=== PATIENT | female | born 1955 | race Caucasian/White ===

== ENCOUNTER 2019-04-24 10:20 | Emergency (ER) | payer MEDICARE, MEDICAID, SELFPAY ==
--- NOTE | ~2019-04-24 | XR_ITS ---
EXAMINATION: XR chest 2V 04/24/2019 11:29 INDICATION: Shortness of breath, cough and fever PROCEDURE: 2 view chest COMPARISON: Comparison to multiple prior studies sequentially, with oldest reviewed study dated 05/2013. FINDINGS: The lungs are clear. The cardiomediastinal silhouette is within normal limits. There are no pleural effusions. There is no pneumothorax suspected. IMPRESSION: 1: NO ACUTE CARDIOPULMONARY DISEASE. Reviewed, dictated and finalized at location A. [employer]
[2019-04-24 10:45] VITALS: BP 148/72; PULSE 81; RESP 20; TEMP 37.2; O2SAT 93
[2019-04-24] MEDS: IPRATROPIUM 0.5 MG/ALBUTEROL SULFATE 2.5 MG AMPUL.NEB 3 ML INHALATION (11:03)
[2019-04-24 11:05] VITALS: PULSE 75; RESP 16
--- NOTE | 2019-04-24 11:10 | ED.GENADULT ---
HPI - General Adult General Chief complaint: Upper Respiratory Infection Stated complaint: possible flu Time Seen by Provider: 04/24/19 10:30 Source: patient Mode of arrival: ambulatory Limitations: no limitations History of Present Illness HPI narrative: 53-year-old with a history of COPD comes in today complaining of fever, chills, fatigue, headache, body aches, cough and congestion that started in the last day or 2. She states that she feels short of breath, wheezy, and the symptoms were not improved with her morning neb treatment. She denies sick exposures. She states that she recently had the influenza and pneumonia vaccines. Onset (ago): day(s) (1-2) Severity: moderate Relieving factors: none Exacerbating factors: none Associated symptoms: cough, fever/chills, headaches, malaise and shortness of breath Treatments prior to arrival: other (albuterol at 0900 today) Related Data Home Medications Medication Instructions Recorded Confirmed alendronate 70 mg PO DAILY 04/24/19 04/24/19 amlodipine 10 mg PO DAILY 04/24/19 04/24/19 atorvastatin 20 mg PO DAILY 04/24/19 04/24/19 carvedilol 12.5 mg PO DAILY 04/24/19 04/24/19 ergocalciferol (vitamin D2) 1,250 mcg PO DAILY 04/24/19 04/24/19 linaclotide [Linzess] 72 mcg PO DAILY 04/24/19 04/24/19 Allergies Allergy/AdvReac Type Severity Reaction Status Date / Time Bleach (Sodium Hypochlorite) Allergy Intermediate Verified 06/11/12 10:36 ibuprofen Allergy Intermediate Verified 06/11/12 11:01 lisinopril Allergy Intermediate Verified 06/11/12 10:36 rosuvastatin [Crestor] Allergy Intermediate nausea Verified 04/15/13 14:10 No Known Allergies Allergy Unverified 10/19/18 11:15 Review of Systems Constitutional: Constitutional: Reports as per HPI, Reports chills, Reports fatigue and Reports fever(s) Eyes: Eyes: Denies change in vision and Denies photophobia ENT: Denies dysphagia, Reports nasal congestion and Denies sore throat Cardiovascular: Cardiovascular: Denies chest pain and Denies radiating jaw, neck or arm pain Respiratory: Respiratory: Reports as per HPI, Reports cough, Reports dyspnea and Reports wheezing Gastrointestinal: Gastrointestinal: Denies abdominal pain, Denies diarrhea, Denies nausea and Denies vomiting Genitourinary: Genitourinary: Denies nocturia and Denies dysuria Musculoskeletal: Musculoskeletal: Denies back pain and Denies joint swelling Integumentary/Breasts: Skin/Breast: Denies pruritus, Denies erythema and Denies rash Neurologic: Denies vertigo, Denies syncope, Reports headache(s) and Denies focal weakness Psychiatric: Psychiatric: Denies anxiety and Denies depression Endocrine: Endocrine: Denies polydipsia and Denies polyuria Hematologic/Lymphatic: Hematologic/Lymphatic: Denies easy bleeding and Denies easy bruising Allergic/Immunologic: Allergic/Immunologic: Denies lip swelling and Reports wheezing FOR[facility]LY [facility] Past Medical History Medical History (Updated 04/24/19 @ 12:07 by Gualberto Borja MD) COPD (chronic obstructive pulmonary disease) HTN (hypertension) Hypertriglyceridemia Obesity Surgical History Surgical History History of carpal tunnel surgery History of dilatation and curettage Family History Family History (Updated 03/13/14 @ 00:00 by CONVUSER A) Father Family history of type 2 diabetes mellitus Hypertension Mother Family history of coronary artery disease Family history of type 2 diabetes mellitus Sister Family history of type 2 diabetes mellitus Brother Family history of type 2 diabetes mellitus Social History Social History (Updated 04/24/19 @ 11:16 by Gualberto Borja MD) Smoking status: Former smoker Alcohol intake: never Substance use: never Living arrangements: alone Exam Const: General: no acute distress Nutritional Appearance: obese Orientation/consciousness: patient oriented x3 Limitations: no limitations HENMT: Ears:
[2019-04-24 11:12] LABS: Influenza Control Valid (Valid)
[2019-04-24 11:16] VITALS: PULSE 72; RESP 16
--- NOTE | 2019-04-24 11:40 | PC.NURSE ---
2L O2 APPLIED SPO2 DROPPED TO 89%
[2019-04-24 12:15] LABS: Add Urine Microscopic? YES; Appearance Urine Clear (Clear); Bilirubin Urine Negative (Negative); Blood Urine 1+ (Negative); Color Urine Yellow (Yellow); Glucose Urine UA Negative (Negative); Ketones Urine Negative (Negative); Leukocyte Esterase Ur Negative (Negative); Nitrate Urine Negative (Negative); Protein Urine Negative (Negative); Specific Grav Ur <= 1.005 (1.010-1.020); Urobilinogen Urine 0.2 mg/dL (0.2-1.0)
--- NOTE | 2019-04-24 12:17 | PC.NURSE ---
SPO2 92% ON ROOM AIR
[2019-04-24 12:19] LABS: Bacteria Urine None seen /hpf; RBC Urine 0-2 /hpf (0-2); Squamous Epithelial Cell Urine Moderate /hpf (Few); WBC Urine 0-3 /hpf (0-3)
[2019-04-24 12:27] VITALS: BP 137/65; O2SAT 92
== END 2019-04-24 12:31 | disposition home or self-care (01) ==
PROVIDERS: Emergency Provider Emergency Medicine; PCP Internal Medicine
DX: J20.9 Acute bronchitis, unspecified (principal)
CPT/HCPCS: 71046; 81001; 87804; 94640; 99283

== ENCOUNTER 2019-06-11 06:55 | Outpatient (CLI) | payer MEDICARE, MEDICAID, SELFPAY ==
[2019-06-11 07:35] LABS: Estimated Glomerular Filt Rate > 60
== END 2019-06-11 06:56 | disposition home or self-care (01) ==
LOC: CHSIMG 06:58
PROVIDERS: PCP Internal Medicine; Visit Provider Internal Medicine
DX: R42 Dizziness and giddiness (principal); Z53.8 Procedure and treatment not carried out for other reasons
CPT/HCPCS: 99199

== ENCOUNTER 2019-11-24 12:03 | Outpatient (CLI) | payer MEDICARE, MEDICAID, SELFPAY ==
--- NOTE | ~2019-11-24 | CT_ITS ---
EXAMINATION: CT lung screening EXAM DATE: 11/24/2019 12:41 INDICATION: Personal history of nicotine dependence. TECHNIQUE: Spiral low dose CT of the chest without contrast. Axial, coronal and sagittal images were reviewed. The dose-length product (DLP) for this examination was 503.19 mGy-cm. The exposure was t ailored according to patient size (auto mA exposure control), and iterative reconstruction (ASIR) was used as additional dose reduction technique. Comparison is made to prior examination from 09/20/18. FINDINGS: Several punctate calcified granulomas. There is mild emphysema. No suspicious pulmonary no dules. Tracheobronchial tree is patent. There is no mediastinal, hilar or axillary lymphadenopathy . There are no pleural or pericardial effusions. There is no pneumothorax. Heart normal in size . There is moderate coronary arterial calcification, arterial sclerosis. Completely imaged right ad renal gland hyperplasia or adenoma. Patient has diffuse idiopathic skeletal hyperostosis (DISH). IMPRESSION: Lung-RADS category 1, negative (<1%chance of malignancy); recommend continued LDCT screen ing in 1 year. Reviewed, dictated and finalized at location B. IMPRESSION: Lung-RADS category 1, negative (<1%chance of malignancy); recommend continued LDCT screening in 1 year.
--- NOTE | ~2019-11-24 | MM_ITS ---
EXAMINATION: MM screening natty BI w ronnie HISTORY: Screening mammogram TECHNIQUE: Craniocaudal and mediolateral oblique 3-D tomosynthesis images were obtained and synthetic 2-D images were generated. CAD analysis was submitted and interpreted. COMPARISON: 01/05/2017 bilateral digital screening mammogram BREAST PARENCHYMAL COMPOSITION: There are scattered areas of fibroglandular density. FINDINGS: Multiple bilateral benign calcifications are noted.. There is no evidence of suspicious mas s, calcification, or architectural distortion to suggest malignancy in either breast. There has been no suspicious interval change. IMPRESSION: 1. No mammographic evidence of malignancy. 2. Recommend routine screening mammography in one year. BI-RADS Category 2: Benign finding(s). Reviewed, dictated and finalized at location A.
== END 2019-11-24 12:04 | disposition home or self-care (01) ==
LOC: CHSIMG 12:06
PROVIDERS: PCP Internal Medicine; Visit Provider Internal Medicine
DX: Z12.2 Encounter for screening for malignant neoplasm of respiratory organs (principal); Z87.891 Personal history of nicotine dependence; Z12.31 Encounter for screening mammogram for malignant neoplasm of breast
CPT/HCPCS: 77063; 77067; G0297

== ENCOUNTER 2020-04-05 10:25 | Outpatient (CLI) | payer MEDICARE, MEDICAID, SELFPAY ==
--- NOTE | ~2020-04-05 | XR_ITS ---
EXAMINATION: XR hip RT min 2V DATE: 04/05/2020 10:53 INDICATION: Right hip pain. TECHNIQUE: 2 views of right hip were obtained. COMPARISON: None. FINDINGS: Bone alignment is normal. No fracture. Right hip joint space is normal. IMPRESSION: 1. Normal right hip. Reviewed, dictated and finalized at location A. OGICS SPECIALIST IMPRESSION: 1. Normal right hip.
== END 2020-04-05 10:26 | disposition home or self-care (01) ==
LOC: CHSIMG 10:27
PROVIDERS: PCP Nurse Practitioner Family; Visit Provider Nurse Practitioner Family
DX: M25.551 Pain in right hip (principal)
CPT/HCPCS: 73502

== ENCOUNTER 2020-08-29 07:27 | Outpatient (CLI) | payer MEDICARE, MEDICAID, SELFPAY ==
--- NOTE | ~2020-08-29 | MR_ITS ---
EXAMINATION: MR brain/brain stem wo/w con DATE: 08/29/2020 12:13 INDICATION: Dementia. TECHNIQUE: Magnetic resonance imaging (MRI) of the brain and brainstem was performed without and with 10 mL MultiHance intravenous contrast. Sequences included sagittal and axial T1-weighted FSE, axial diffusion-weighted FS EPI, axial T2*-weighted GRE, axial T2-weighted FLAIR Propeller, and axial T2-we ighted Propeller. Postcontrast sequences included axial and coronal T1-weighted FSE. Apparent diffusi on coefficient (ADC) maps were created. COMPARISON: None. FINDINGS: There are old infarcts in left cerebellum. There are scattered areas of nonspecific increas ed T2-weighted signal intensity in the cerebral white matter. There is cystic encephalomalacia in the right frontal lobe periventricular white matter. There is no intracranial hemorrhage, acute infarcti on, or abnormal intracranial mass lesion. The ventricles are normal in size. The orbits are normal. T here are mucous retention cyst in right maxillary sinus. The mastoid air cells are normal. IMPRESSION: 1. 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 2. Moderate nonspecific cerebral white matter disease, which likely represents chronic small vessel i schemic disease. Reviewed, dictated and finalized at location A. IMPRESSION: 1. 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 2. Moderate nonspecific cerebral white matter disease, which likely represents chronic small vessel ischemic disease.
== END 2020-08-29 07:28 | disposition home or self-care (01) ==
LOC: CHSIMG 07:30
PROVIDERS: PCP Internal Medicine; Visit Provider Internal Medicine
DX: F03.90 Unspecified dementia, unspecified severity, without behavioral disturbance, psychotic disturbance, mood disturbance, and anxiety (principal)
CPT/HCPCS: 70553; A9577

== ENCOUNTER 2020-10-11 09:59 | Outpatient (CLI) | payer MEDICARE, MEDICAID, SELFPAY ==
--- NOTE | ~2020-10-11 | US_ITS ---
EXAMINATION: US carotid duplex BI DATE: 10/11/2020 11:42 INDICATION: Right frontal lobe infarct. Cerebral vascular accident. TECHNIQUE: Grayscale, color Doppler, and pulsed Doppler images of the cervical carotid arteries were obtained. The degree of vessel stenosis is placed in one of the following categories: normal, <50%, 5 0-69%, >=70% but less than near-occlusion, near-occlusion, or total occlusion. Note that percent sten osis relative to normal distal artery lumen diameter is indirectly measured from velocity measurement s as described by Nate, et al. Radiology 2003; 229:340-346. COMPARISON: None. FINDINGS: RIGHT: The right common carotid artery (CCA) peak systolic velocity (PSV) is 72 cm/s. The right internal car otid artery (ICA) PSV is 126 cm/s. The right ICA end-diastolic velocity (EDV) is 26 cm/s. The right I CA/CCA PSV ratio is 1.7. Grayscale and color Doppler images yield an estimate of <50% diameter reduct ion from plaque in the ICA. There is antegrade flow in the right vertebral artery. LEFT: The left CCA PSV is 90 cm/s. The left ICA PSV is 100 cm/s. The left ICA EDV is 23 cm/s. The left ICA/ CCA PSV ratio is 1.1. Grayscale and color Doppler images yield an estimate of <50% diameter reduction from plaque in the ICA. There is antegrade flow in the left vertebral artery. IMPRESSION: 1. <50% stenosis in the right internal carotid artery. 2. <50% stenosis in the left internal carotid artery. Reviewed, dictated and finalized at location A.
--- NOTE | 2020-10-11 11:43 | ECHO_ITS ---
Patient Info Name: Clau Carlson Age: 65 years : 1955 Gender: Female Ht: 66 in Wt: 297 lbs BSA: 2.58 m2 HR: 68 bpm BP: 155 / 81 mmHg Technical Quality: Fair Exam Date: 10/11/2020 10:54 AM Exam Location: [facility] Patient Status: Outpatient Admit Date: 10/11/2020 Staff Ordering Physician: Tex Coffey MD Health And Safety Trainer: Layton Landrum RDCS, RT Attending Provider: Tex Coffey MD Referring Physician: Alexx PHILLIPS; Exam Type: CA echo doppler color flow Study Info Indications I63.239 - Cerebral infarction due to unspecified occlusion or stenosis of unspecified carotid arteries Complete two-dimensional, color flow and Doppler transthoracic echocardiogram is performed. Summary 1. Complete two-dimensional, color flow and Doppler transthoracic echocardiogram is performed. 2. Left ventricular chamber dimension is normal. 3. Left ventricular systolic function is normal, estimated at 55-60%. 4. There is moderately increased left ventricular wall thickness. 5. The left ventricular diastolic function is grade I diastolic dysfunction. 6. E/e' 11 is mildly elevated. 7. Left atrial chamber dimension is mildly enlarged. 8. There is mild aortic valve sclerosis. 9. Dilated inferior vena cava with >50% collapse upon inspiration consistent with elevated right atrial pressure, 10 mmHg. 10. There is trivial pericardial effusion. Left Ventricle E/e' 11 is mildly elevated. Left ventricular chamber dimension is normal. Left ventricular systolic function is normal, estimated at 55-60%. There is moderately increased left ventricular wall thickness. The left ventricular diastolic function is grade I diastolic dysfunction. Right Ventricle Right ventricular systolic function is normal and with normal TAPSE 2.4 cm.. Right ventricular chamber dimension is normal. Left Atria Left atrial chamber dimension is mildly enlarged. Right Atria Right atrial chamber dimension is normal. Aortic Valve The aortic valve is probable trileaflet. There is mild aortic valve sclerosis. There is no aortic valve stenosis. There is no aortic valve regurgitation. Pulmonic Valve There is no pulmonic regurgitation. Mitral Valve There is no mitral valve stenosis. There is no mitral valve regurgitation. Tricuspid Valve There is no tricuspid valve regurgitation. Pericardium/Pleural There is trivial pericardial effusion. Inferior Vena Cava Dilated inferior vena cava with >50% collapse upon inspiration consistent with elevated right atrial pressure, 10 mmHg. Aorta The aortic root size at the sinus of Valsalva is normal. Left Ventricular Outflow Tract Name Value Normal LVOT 2D LVOT Diameter 2.2 cm LVOT Doppler LVOT Peak Velocity 83 cm/s LVOT Peak Gradient 3 mmHg LVOT Mean Gradient 2 mmHg LVOT VTI 20 cm LVOT VTI/AV VTI Ratio 0.7 LVOT Stroke Volume 76 ml Mitral Valve Name
== END 2020-10-11 10:00 | disposition home or self-care (01) ==
LOC: CHSIMG 10:00
PROVIDERS: PCP Internal Medicine; Visit Provider Internal Medicine
DX: I63.9 Cerebral infarction, unspecified (principal)
CPT/HCPCS: 93306; 93880

== ENCOUNTER 2020-11-08 07:13 | Outpatient (CLI) | payer MEDICARE, MEDICAID, SELFPAY ==
--- NOTE | ~2020-11-08 | MM_ITS ---
EXAMINATION: MM screening natty BI w ronnie HISTORY: Screening mammogram TECHNIQUE: Craniocaudal and mediolateral oblique 3-D tomosynthesis images were obtained and synthetic 2-D images were generated. CAD analysis was submitted and interpreted. COMPARISON: 11/20/2019, 01/05/2017 bilateral digital screening mammogram examinations BREAST PARENCHYMAL COMPOSITION: There are scattered areas of fibroglandular density. FINDINGS: Scattered bilateral benign calcifications are again noted. There is no evidence of suspicio us mass, calcification, or architectural distortion to suggest malignancy in either breast. There has been no suspicious interval change. IMPRESSION: 1. No mammographic evidence of malignancy. 2. Recommend routine screening mammography in one year. BI-RADS Category 2: Benign finding(s). Reviewed, dictated and finalized at location A.
== END 2020-11-08 07:14 | disposition home or self-care (01) ==
LOC: CHSIMG 07:15
PROVIDERS: PCP Internal Medicine; Visit Provider Internal Medicine
DX: Z12.31 Encounter for screening mammogram for malignant neoplasm of breast (principal)
CPT/HCPCS: 77063; 77067

== ENCOUNTER 2020-12-27 09:23 | Outpatient (CLI) | payer MEDICARE, MEDICAID, SELFPAY ==
--- NOTE | ~2020-12-27 | CT_ITS ---
EXAMINATION: CT lung screening EXAM DATE: 12/27/2020 09:47 INDICATION: Personal history of tobacco dependence. TECHNIQUE: Spiral low dose CT of the chest without contrast. Axial, coronal and sagittal images were reviewed. The dose-length product (DLP) for this examination was 542.48 mGy-cm. The exposure was t ailored according to patient size (auto mA exposure control), and iterative reconstruction (ASIR) was used as additional dose reduction technique. Comparison is made to prior examination from 11/24/2019. FINDINGS: There are some calcified parenchymal granulomas and small other regions of post infectious residua. There is mild emphysema. No focal noncalcified pulmonary nodules identified. Tracheobronch ial tree is patent. There is no mediastinal, hilar or axillary lymphadenopathy. There are no pleu ral or pericardial effusions. There is no pneumothorax. Heart normal in size. There is moderate to severe coronary arterial calcification, arterial sclerosis. 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 Patient has diffuse idiopathic skeletal hyperostosis (DISH). There is thoracic spondylosis without osteoblastic or osteolytic lesions identified. IMPRESSION: 1. Lung-RADS category 1S, negative (<1%chance of malignancy); recommend continued LDCT screening in 1 year. 2. Dense left anterior descending coronary artery calcifications, consider cardiac consult if not rec ently evaluated. Reviewed, dictated and finalized at location B. IMPRESSION: 1. Lung-RADS category 1S, negative (<1%chance of malignancy); recommend continu ed LDCT screening in 1 year. 2. Dense left anterior descending coronary artery calcifications, consider card iac consult if not recently evaluated.
== END 2020-12-27 09:24 | disposition home or self-care (01) ==
LOC: CHSIMG 09:26
PROVIDERS: PCP Internal Medicine; Visit Provider Internal Medicine
DX: Z12.2 Encounter for screening for malignant neoplasm of respiratory organs (principal); Z87.891 Personal history of nicotine dependence
CPT/HCPCS: 71271

== ENCOUNTER 2021-11-11 08:18 | Outpatient (CLI) | payer MEDICARE, MEDICAID, SELFPAY ==
--- NOTE | ~2021-11-11 | MM_ITS ---
EXAMINATION: MM screening natty BI w ronnie HISTORY: Screening mammogram TECHNIQUE: Craniocaudal and mediolateral oblique 3-D tomosynthesis images were obtained and synthetic 2-D images were generated. CAD analysis was submitted and interpreted. COMPARISON: 11/08/2020, 11/20/2019, 01/05/2017 bilateral screening mammogram examinations BREAST PARENCHYMAL COMPOSITION: There are scattered areas of fibroglandular density. FINDINGS: Scattered bilateral benign calcifications. Stable mild fibroglandular asymmetry. There is n o evidence of suspicious mass, calcification, or architectural distortion to suggest malignancy in ei ther breast. There has been no suspicious interval change. IMPRESSION: 1. No mammographic evidence of malignancy. 2. Recommend routine screening mammography in one year. BI-RADS Category 2: Benign finding(s). Reviewed, dictated and finalized at location A.
== END 2021-11-11 08:19 | disposition home or self-care (01) ==
LOC: CHSIMG 08:20
PROVIDERS: PCP Family Medicine; Visit Provider Family Medicine
DX: Z12.31 Encounter for screening mammogram for malignant neoplasm of breast (principal)
CPT/HCPCS: 77063; 77067

== ENCOUNTER 2022-11-13 11:45 | Outpatient (CLI) | payer MEDICARE, MEDICAID, SELFPAY ==
--- NOTE | ~2022-11-13 | MM_ITS ---
EXAMINATION: MM screening natty BI w ronnie HISTORY: Screening mammogram TECHNIQUE: Craniocaudal and mediolateral oblique 3-D tomosynthesis images were obtained and synthetic 2-D images were generated. CAD analysis was submitted and interpreted. COMPARISON: 11/11/2021, 11/18/2020, 11/20/2019 bilateral screening mammogram examinations BREAST PARENCHYMAL COMPOSITION: There are scattered areas of fibroglandular density. FINDINGS: Multiple scattered bilateral benign calcifications are again present. There is no evidence of suspicious mass, calcification, or architectural distortion to suggest malignancy in either breast . There has been no suspicious interval change. IMPRESSION: 1. No mammographic evidence of malignancy. 2. Recommend routine screening mammography in one year. BI-RADS Category 2: Benign finding(s). Reviewed, dictated and finalized at location A.
== END 2022-11-13 11:46 | disposition home or self-care (01) ==
LOC: CHSIMG 11:46
PROVIDERS: PCP Family Medicine; Visit Provider Family Medicine
DX: Z12.31 Encounter for screening mammogram for malignant neoplasm of breast (principal)
CPT/HCPCS: 77063; 77067